=== PATIENT | male | born 1970 | race African-American/Black ===

== ENCOUNTER 2019-01-04 13:22 | Inpatient (IN) | payer OTHER ==
[2019-01-04 14:32] VITALS: BMI 31.2
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
[2019-01-04] MEDS ORDERED: ACETAMINOPHEN 325 MG TABLET (FP) PO PRN (15:46)
[2019-01-04] MEDS ORDERED: P-EPHED 60MG/TRIPROLIDI 2.5MG TABLET PO PRN (15:46)
[2019-01-04] MEDS ORDERED: LOPERAMIDE HCL 2 MG CAPSULE PO PRN (15:46)
[2019-01-04] MEDS ORDERED: IBUPROFEN 400 MG TABLET (FP) PO PRN (15:46)
[2019-01-04] MEDS ORDERED: MAGNESIUM CITRATE 300 ML BOTTLE PO PRN (15:46)
[2019-01-04] MEDS ORDERED: MAG HYDROX/AL HYDROX/SIMETH 30 ML UNIT-DOSE CUP PO PRN (15:46)
[2019-01-04] MEDS ORDERED: guaiFENesin 200 MG/10 ML 10 ML UNIT-DOSE CUPS PO PRN (15:46)
[2019-01-04] MEDS ORDERED: MAGNESIUM HYDROX 2400MG/30ML ORAL SUSPENSION 30 ML CUP PO PRN (15:46)
[2019-01-04] MEDS ORDERED: MENTHOL/PHENOL 1 EACH UD MM PRN (15:46)
[2019-01-04] MEDS: hydrOXYzine PAMOATE 50 MG CAPSULE (FP) PO PRN (21:23)
[2019-01-04] MEDS: MELATONIN 5 MG TABLETS PO PRN (21:23)
[2019-01-04] MEDS: THIAMINE HCL 100 MG TABLET (FP) PO SCH (21:23)
[2019-01-04] MEDS: cloNIDine HCL 0.1 MG TABLET PO PRN (21:24)
[2019-01-04] MEDS: NICOTINE POLACRILEX 4 MG GUM BC PRN (23:07)
[2019-01-05] MEDS: cloNIDine HCL 0.1 MG TABLET PO PRN ×2 (08:50→21:20)
[2019-01-05] MEDS: PRENATAL VITAMINS W/ FOLIC ACID TABLET (FP) PO SCH (10:13)
[2019-01-05] MEDS: hydrOXYzine PAMOATE 50 MG CAPSULE (FP) PO PRN ×2 (10:13→21:20)
[2019-01-05] MEDS: NICOTINE POLACRILEX 4 MG GUM BC PRN ×4 (10:14→21:19)
[2019-01-05] MEDS: THIAMINE HCL 100 MG TABLET (FP) PO SCH (21:19)
[2019-01-06] MEDS: hydrOXYzine PAMOATE 50 MG CAPSULE (FP) PO PRN ×2 (06:15→21:16)
[2019-01-06] MEDS: cloNIDine HCL 0.1 MG TABLET PO PRN ×2 (06:16→21:16)
[2019-01-06] MEDS: PRENATAL VITAMINS W/ FOLIC ACID TABLET (FP) PO SCH (09:57)
[2019-01-06] MEDS: NICOTINE POLACRILEX 4 MG GUM BC PRN ×2 (09:58→21:17)
[2019-01-06 14:55] LABS: HEMATOCRIT 42.9 % (35.4-49); HEMOGLOBIN 14.4 GM/dL (11.7-16.9); MCHC 33.5 g/dl (32.0-35.9); MEAN CELL VOLUME 95.7 fl (80-96); MEAN PLT VOLUME 8.5 fl (7.5-11.1); PLATELET COUNT 274 K/MM3 (134-434); RBC 4.49 M/mm3 (4.00-5.60); RDW 14.7 % (11.9-15.9); WHITE BLOOD COUNT 5.3 K/mm3 (4.0-10.0)
[2019-01-06 15:08] LABS: ALBUMIN 3.6 g/dl (3.4-5.0); BILIRUBIN,TOTAL 0.4 mg/dL (0.2-1); BLOOD UREA NITROGEN 15.4 mg/dL (7-18); CALCIUM 9.5 mg/dL (8.5-10.1); CREATININE 0.8 mg/dL (0.55-1.3); TOT PROT 7.5 g/dl (6.4-8.2)
--- NOTE | 2019-01-06 15:46 | PN ---
"[facility] Progress Note Note: Pt requesting to restart suboxone treatment. Reports last taken was 2 weeks ago. Reports he was on suboxone-MAT with [facility] on [address] [place] [address] Ph: with Dr. Pittman. Vital Signs - 24 hr 01/05/19 01/06/19 01/06/19 22:44 00:30 03:30 Temperature Pulse Rate 90 Respiratory 18 18 Rate Blood Pressure 110/67 01/06/19 06:40 Temperature 97.8 F Pulse Rate 66 Respiratory 18 Rate Blood Pressure 125/81 Laboratory Tests 01/06/19 01/06/19 08:35 08:35 WBC 5.3 RBC 4.49 Hgb 14.4 Hct 42.9 MCV 95.7 MCH 32.0 MCHC 33.5 RDW 14.7 Plt Count 274 MPV 8.5 Sodium 139 Potassium 4.0 Chloride 105 Carbon Dioxide 27 Anion Gap 8 BUN 15.4 Creatinine 0.8 Est GFR (CKD-EPI)AfAm 123.29 Est GFR (CKD-EPI)NonAf 106.38 Random Glucose 113 H Calcium 9.5 Total Bilirubin 0.4 AST 28 ALT 38 Alkaline Phosphatase 149 H Total Protein 7.5 Albumin 3.6 A:suboxone MAT plan:D/w pt will do UDS follow up with counselor to set up aftercare post rehab treatment. pt will be going back to [facility] after discharge from rehab. This report was requested by: Melva To | Reference #: [id number] Others' Prescriptions Patient Name: Grzegorz Feng Date: 1970 Address: [address] [place] [id number] Sex: Male Rx Written Rx Dispensed Drug Quantity Days Supply Prescriber Name 12/09/2018 12/09/2018 buprenorphine-naloxone 8-2 mg sl film 90 30 Devan Gonzalez 10/06/2018 10/06/2018 suboxone 8 mg-2 mg sl film 90 30 MD Moe, Noah 08/10/2018 08/10/2018 buprenorphine-naloxone 8-2 mg sl film 90 30 Lea Canchola 07/13/2018 07/14/2018 suboxone 8 mg-2 mg sl film 90 30 MD Moe, Noah 06/16/2018 06/16/2018 suboxone 8 mg-2 mg sl film 90 30 MD Rosa Mario 05/13/2018 05/13/2018 suboxone 8 mg-2 mg sl film 90 30 Devan Gonzalez 04/24/2018 04/24/2018 suboxone 8 mg-2 mg sl film 60 20 MD Moe, Noah Patient Name: Grzegorz Feng Date: 1970 Address: [address] [place] [address] Sex: Male Rx Written Rx Dispensed Drug Quantity Days Supply Prescriber Name 09/08/2018 09/08/2018 suboxone 8 mg-2 mg sl film 90 30 Kelton Quach * - Drugs marked with an asterisk are compound drugs. If the compound drug is made up of more than one controlled substance, then each controlled substance will be a separate row in the table."
[2019-01-06] MEDS: THIAMINE HCL 100 MG TABLET (FP) PO SCH (21:14)
[2019-01-06] MEDS: MELATONIN 5 MG TABLETS PO PRN (21:16)
[2019-01-07] MEDS: hydrOXYzine PAMOATE 50 MG CAPSULE (FP) PO PRN ×2 (06:19→21:03)
[2019-01-07] MEDS: cloNIDine HCL 0.1 MG TABLET PO PRN ×2 (06:19→21:04)
[2019-01-07] MEDS: NICOTINE POLACRILEX 4 MG GUM BC PRN ×4 (06:21→21:04)
[2019-01-07] MEDS: PRENATAL VITAMINS W/ FOLIC ACID TABLET (FP) PO SCH (10:08)
--- NOTE | 2019-01-07 14:38 | PN ---
[facility] COWS - Scale Resting Pulse: 0= [place] 80 or Below Sweatin= Chills/Flushing Restless Observation: 0= Sits Still Pupil Size: 0= Normal to Room Light (3mm) Bone or Joint Aches: 0= None Runny Nose/ Eye Tearin= None GI Upset > 30mins: 2= Nausea/Diarrhea (diarrhea) Tremor Observation of Outstretched Hands: 0= None Yawning Observation: 1= 1-2x During Session Anxiety or Irritability: 1=Feels Anxious/Irritable Goose Flesh Skin: 3=Piloerection COWS Score: 8 [facility] Progress Note (SOAP) Subjective: Request to restart suboxone. Pt reports he was on suboxone 24 mg/ daily. last Rx of 90 films for 30 days was 12/09/18 as per PNP below. Spoke to Dr. Zain fuentes at [place], [place] at pt's suboxone clinic and he confirmed that patient may return to clinic after rehab. Objective: 01/07/19 14:38 Vital Signs - 24 hr 01/06/19 01/07/19 01/07/19 21:00 00:30 03:30 Temperature Pulse Rate 84 Respiratory 18 18 Rate Blood Pressure 114/74 01/07/19 06:49 Temperature 97.6 F Pulse Rate 76 Respiratory 18 Rate Blood Pressure 110/80 URINE DRUG SCREEN RESULTS Drug Screen Negative No Urine Drug Screen Results THC-Marijuana,BZO-Benzodiazepines Assessment: 01/08/19 08:38 oud suboxone MAT Plan: Restart Suboxone 8 mg/2mg sl daily then re-evaluate sx for increased daily dose.
[2019-01-07] MEDS: THIAMINE HCL 100 MG TABLET (FP) PO SCH (21:02)
[2019-01-07] MEDS: MELATONIN 5 MG TABLETS PO PRN (21:04)
[2019-01-08] MEDS: NICOTINE POLACRILEX 4 MG GUM BC PRN ×4 (06:06→21:08)
[2019-01-08] MEDS: cloNIDine HCL 0.1 MG TABLET PO PRN ×2 (06:06→21:09)
[2019-01-08] MEDS: hydrOXYzine PAMOATE 50 MG CAPSULE (FP) PO PRN ×2 (06:07→21:09)
[2019-01-08] MEDS ORDERED: BUPRENORPHINE/NALOXONE 8 MG/2 MG FILM PACKET SL ONE (10:00)
[2019-01-08] MEDS ORDERED: BUPRENORPHINE/NALOXONE 8 MG/2 MG FILM PACKET SL SCH (10:00)
[2019-01-08] MEDS: PRENATAL VITAMINS W/ FOLIC ACID TABLET (FP) PO SCH (10:01)
[2019-01-08] MEDS: THIAMINE HCL 100 MG TABLET (FP) PO SCH (21:09)
[2019-01-08] MEDS: MELATONIN 5 MG TABLETS PO PRN (21:09)
[2019-01-09] MEDS: BUPRENORPHINE/NALOXONE 8 MG/2 MG FILM PACKET SL SCH (10:11)
[2019-01-09] MEDS: cloNIDine HCL 0.1 MG TABLET PO PRN ×2 (10:11→21:06)
[2019-01-09] MEDS: PRENATAL VITAMINS W/ FOLIC ACID TABLET (FP) PO SCH (10:11)
[2019-01-09] MEDS: hydrOXYzine PAMOATE 50 MG CAPSULE (FP) PO PRN ×2 (10:11→21:06)
[2019-01-09] MEDS: NICOTINE POLACRILEX 4 MG GUM BC PRN ×4 (11:11→23:10)
[2019-01-09] MEDS: THIAMINE HCL 100 MG TABLET (FP) PO SCH (21:04)
[2019-01-10] MEDS: NICOTINE POLACRILEX 4 MG GUM BC PRN ×4 (06:40→21:12)
[2019-01-10] MEDS: PRENATAL VITAMINS W/ FOLIC ACID TABLET (FP) PO SCH (10:11)
[2019-01-10] MEDS: cloNIDine HCL 0.1 MG TABLET PO PRN ×2 (10:12→21:12)
[2019-01-10] MEDS: hydrOXYzine PAMOATE 50 MG CAPSULE (FP) PO PRN ×2 (10:12→21:12)
[2019-01-10] MEDS: BUPRENORPHINE/NALOXONE 8 MG/2 MG FILM PACKET SL SCH (10:13)
[2019-01-10] MEDS: THIAMINE HCL 100 MG TABLET (FP) PO SCH (21:10)
[2019-01-10] MEDS: MELATONIN 5 MG TABLETS PO PRN (21:12)
[2019-01-11] MEDS: hydrOXYzine PAMOATE 50 MG CAPSULE (FP) PO PRN ×2 (09:52→21:05)
[2019-01-11] MEDS: NICOTINE POLACRILEX 4 MG GUM BC PRN ×3 (09:53→21:05)
[2019-01-11] MEDS: PRENATAL VITAMINS W/ FOLIC ACID TABLET (FP) PO SCH (09:53)
[2019-01-11] MEDS: BUPRENORPHINE/NALOXONE 8 MG/2 MG FILM PACKET SL SCH (09:54)
[2019-01-11] MEDS: cloNIDine HCL 0.1 MG TABLET PO PRN ×2 (10:41→21:05)
[2019-01-11] MEDS: THIAMINE HCL 100 MG TABLET (FP) PO SCH (21:03)
[2019-01-11] MEDS: MELATONIN 5 MG TABLETS PO PRN (21:05)
[2019-01-12] MEDS: BUPRENORPHINE/NALOXONE 8 MG/2 MG FILM PACKET SL SCH (09:44)
[2019-01-12] MEDS: hydrOXYzine PAMOATE 50 MG CAPSULE (FP) PO PRN ×2 (09:44→21:07)
[2019-01-12] MEDS: cloNIDine HCL 0.1 MG TABLET PO PRN ×2 (09:44→21:07)
[2019-01-12] MEDS: PRENATAL VITAMINS W/ FOLIC ACID TABLET (FP) PO SCH (09:44)
[2019-01-12] MEDS: THIAMINE HCL 100 MG TABLET (FP) PO SCH (21:05)
[2019-01-12] MEDS: NICOTINE POLACRILEX 4 MG GUM BC PRN ×2 (21:07→23:44)
[2019-01-12] MEDS: MELATONIN 5 MG TABLETS PO PRN (21:07)
[2019-01-12] MEDS: TOLNAFTATE 1% CREAM 15 GM TUBE TP SCH (21:41)
[2019-01-13] MEDS: NICOTINE POLACRILEX 4 MG GUM BC PRN ×4 (06:37→21:06)
[2019-01-13] MEDS: PRENATAL VITAMINS W/ FOLIC ACID TABLET (FP) PO SCH (09:44)
[2019-01-13] MEDS: TOLNAFTATE 1% CREAM 15 GM TUBE TP SCH ×2 (09:44→21:06)
[2019-01-13] MEDS: BUPRENORPHINE/NALOXONE 8 MG/2 MG FILM PACKET SL SCH (09:44)
[2019-01-13] MEDS: hydrOXYzine PAMOATE 50 MG CAPSULE (FP) PO PRN ×2 (09:45→21:05)
[2019-01-13] MEDS: cloNIDine HCL 0.1 MG TABLET PO PRN ×2 (09:45→21:05)
[2019-01-13] MEDS: THIAMINE HCL 100 MG TABLET (FP) PO SCH (21:05)
[2019-01-13] MEDS: MELATONIN 5 MG TABLETS PO PRN (21:06)
[2019-01-14] MEDS: TOLNAFTATE 1% CREAM 15 GM TUBE TP SCH ×2 (09:47→21:09)
[2019-01-14] MEDS: BUPRENORPHINE/NALOXONE 8 MG/2 MG FILM PACKET SL SCH (09:47)
[2019-01-14] MEDS: NICOTINE POLACRILEX 4 MG GUM BC PRN ×4 (09:47→23:35)
[2019-01-14] MEDS: hydrOXYzine PAMOATE 50 MG CAPSULE (FP) PO PRN ×2 (09:47→21:08)
[2019-01-14] MEDS: cloNIDine HCL 0.1 MG TABLET PO PRN ×2 (09:47→21:08)
[2019-01-14] MEDS: PRENATAL VITAMINS W/ FOLIC ACID TABLET (FP) PO SCH (09:47)
[2019-01-14] MEDS: MELATONIN 5 MG TABLETS PO PRN (21:06)
[2019-01-14] MEDS: THIAMINE HCL 100 MG TABLET (FP) PO SCH (21:06)
[2019-01-15] MEDS: NICOTINE POLACRILEX 4 MG GUM BC PRN ×2 (07:57→09:53)
[2019-01-15] MEDS: TOLNAFTATE 1% CREAM 15 GM TUBE TP SCH ×2 (09:51→21:59)
[2019-01-15] MEDS: cloNIDine HCL 0.1 MG TABLET PO PRN ×2 (09:51→21:59)
[2019-01-15] MEDS: PRENATAL VITAMINS W/ FOLIC ACID TABLET (FP) PO SCH (09:51)
[2019-01-15] MEDS: hydrOXYzine PAMOATE 50 MG CAPSULE (FP) PO PRN ×2 (09:51→21:59)
[2019-01-15] MEDS ORDERED: BUPRENORPHINE/NALOXONE 8 MG/2 MG FILM PACKET SL ONE (09:53)
[2019-01-15] MEDS: THIAMINE HCL 100 MG TABLET (FP) PO SCH (21:59)
[2019-01-16] MEDS: cloNIDine HCL 0.1 MG TABLET PO PRN ×2 (06:18→21:12)
[2019-01-16] MEDS: hydrOXYzine PAMOATE 50 MG CAPSULE (FP) PO PRN ×2 (06:18→21:12)
[2019-01-16] MEDS: NICOTINE POLACRILEX 4 MG GUM BC PRN ×3 (06:19→21:13)
[2019-01-16] MEDS: BUPRENORPHINE/NALOXONE 8 MG/2 MG FILM PACKET SL SCH (06:19)
[2019-01-16] MEDS: PRENATAL VITAMINS W/ FOLIC ACID TABLET (FP) PO SCH (10:23)
[2019-01-16] MEDS: TOLNAFTATE 1% CREAM 15 GM TUBE TP SCH ×2 (10:25→21:17)
[2019-01-16] MEDS: THIAMINE HCL 100 MG TABLET (FP) PO SCH (21:12)
[2019-01-16] MEDS: MELATONIN 5 MG TABLETS PO PRN (21:12)
[2019-01-17] MEDS: BUPRENORPHINE/NALOXONE 8 MG/2 MG FILM PACKET SL SCH (06:58)
[2019-01-17] MEDS: NICOTINE POLACRILEX 4 MG GUM BC PRN ×3 (06:58→21:00)
[2019-01-17] MEDS: cloNIDine HCL 0.1 MG TABLET PO PRN (07:01)
[2019-01-17] MEDS: hydrOXYzine PAMOATE 50 MG CAPSULE (FP) PO PRN ×2 (07:01→20:59)
[2019-01-17] MEDS: PRENATAL VITAMINS W/ FOLIC ACID TABLET (FP) PO SCH (09:53)
[2019-01-17] MEDS: TOLNAFTATE 1% CREAM 15 GM TUBE TP SCH ×2 (09:54→21:00)
[2019-01-17] MEDS: THIAMINE HCL 100 MG TABLET (FP) PO SCH (20:59)
[2019-01-17] MEDS: MELATONIN 5 MG TABLETS PO PRN (21:00)
[2019-01-18] MEDS: BUPRENORPHINE/NALOXONE 8 MG/2 MG FILM PACKET SL SCH (06:08)
[2019-01-18 06:35] VITALS: BP 101/74; PULSE 108; TEMP 98.4
[2019-01-18] MEDS: cloNIDine HCL 0.1 MG TABLET PO PRN (07:02)
[2019-01-18] MEDS: hydrOXYzine PAMOATE 50 MG CAPSULE (FP) PO PRN (07:02)
--- NOTE | 2019-01-18 11:15 | PN ---
S Progress Note (SOAP) Subjective: Pt was discharge earlier this morning per his request to follow up with his suboxone provider, Dr. Pittman at [place], [place]. Pt is a 48 y/o A/A male admitted to rehab on 01/04/19 after a 5 day detox at [facility] same day. Pt has a hx of heroin i.v/inh,alcohol,fentanyl and nonRx Methadone use. Pt was re-started on suboxone here in rehab and has agreed to follow up with his provider today as above. Participated in rehab activities and tolerated treatment well. Objective: 01/18/19 11:19 Vital Signs - 24 hr 01/17/19 01/18/19 01/18/19 21:00 00:30 03:30 Temperature Pulse Rate 92 H Respiratory 18 18 18 Rate Blood Pressure 104/57 L 01/18/19 06:34 Temperature 98.4 F Pulse Rate 108 H Respiratory 18 Rate Blood Pressure 101/74 Laboratory Tests 01/06/19 01/06/19 01/06/19 08:35 08:35 08:35 WBC 5.3 RBC 4.49 Hgb 14.4 Hct 42.9 MCV 95.7 MCH 32.0 MCHC 33.5 RDW 14.7 Plt Count 274 MPV 8.5 Sodium 139 Potassium 4.0 Chloride 105 Carbon Dioxide 27 Anion Gap 8 BUN 15.4 Creatinine 0.8 Est GFR (CKD-EPI)AfAm 123.29 Est GFR (CKD-EPI)NonAf 106.38 Random Glucose 113 H Calcium 9.5 Total Bilirubin 0.4 AST 28 ALT 38 Alkaline Phosphatase 149 H Total Protein 7.5 Albumin 3.6 RPR Titer Nonreactive HIV 1&2 Ag/Ab, 4th Gen HIV 1&2 Antibody Screen HIV P24 Antigen 01/13/19 01/13/19 06:30 07:00 WBC RBC Hgb Hct MCV MCH MCHC RDW Plt Count MPV Sodium Potassium Chloride Carbon Dioxide Anion Gap BUN Creatinine Est GFR (CKD-EPI)AfAm Est GFR (CKD-EPI)NonAf Random Glucose Calcium Total Bilirubin AST ALT Alkaline Phosphatase Total Protein Albumin RPR Titer HIV 1&2 Ag/Ab, 4th Gen Non reactive HIV 1&2 Antibody Screen Cancelled HIV P24 Antigen Cancelled Home Medications Medication Instructions Recorded Buprenorphine/Naloxone [Suboxone 3 each SL DAILY 01/04/19 8Mg/2Mg Sl Film -] Assessment: Nad 01/18/19 11:22 [facility] Inpatient Services Medical - Diagnosis (1) Opioid dependence Qualifiers: Substance use status: uncomplicated Qualified Code(s): F11.20 - Opioid dependence, uncomplicated Status: Chronic (2) Alcohol use disorder Status: Chronic (3) Varicose veins of both lower extremities Qualifiers: Varicose vein complication: unspecified Qualified Code(s): I83.93 - Asymptomatic varicose veins of bilateral lower extremities Status: Chronic (4) Encounter for monitoring Suboxone maintenance therapy Status: Chronic Initialized on 01/18/19 11:16 - END OF NOTE Plan: Pt was discharged today. Follow up with CD aftercare as recommended follow up with pcp Dr. Pittman for continuing care/suboxone maintenance treatment.
== END 2019-01-18 07:10 | disposition home or self-care (01) | DRG 772 ==
LOC: YASAS 13:22 → Y5N 16:43
PROVIDERS: ADMIT Neuromusculoskeletal Medicine & OMM; ATTEND Neuromusculoskeletal Medicine & OMM
PROC: HZ42ZZZ Group Counseling for Substance Abuse Treatment, Cognitive-Behavioral (ICD-10-PCS; principal; 2019-01-04)
DX: F11.20 Opioid dependence, uncomplicated (principal); F10.10 Alcohol abuse, uncomplicated; F17.210 Nicotine dependence, cigarettes, uncomplicated; I83.93 Asymptomatic varicose veins of bilateral lower extremities
CPT/HCPCS: 36415; 80053; 85027; 86593; 87389; J0735

== ENCOUNTER 2023-05-26 16:35 | Inpatient (IN) | payer OTHER ==
[2023-05-26 17:26] VITALS: BMI 36.5
[2023-05-26] MEDS ORDERED: BISMUTH SUBSALICYLATE 524 MG/30 ML PO PRN (21:45)
[2023-05-26] MEDS ORDERED: BENZONATATE 200 MG CAPSULE PO PRN (21:45)
[2023-05-26] MEDS ORDERED: POLYETHYLENE GLYCOL (HEALTHYLAX) 3350 17 GM PACKET PO PRN (21:45)
[2023-05-26] MEDS ORDERED: IBUPROFEN 600 MG TABLET (FP) PO PRN (21:45)
[2023-05-26] MEDS ORDERED: NALOXONE HCL (KLOXXADO) 8 MG SPRAY NS PRN (21:45)
[2023-05-26] MEDS ORDERED: IBUPROFEN 400 MG TABLET (FP) PO PRN (21:45)
[2023-05-26] MEDS ORDERED: P-EPHED 60MG/TRIPROLIDI 2.5MG TABLET PO PRN (21:45)
[2023-05-26] MEDS ORDERED: MAGNESIUM HYDROX 2400MG/30ML ORAL SUSPENSION 30 ML CUP PO PRN (21:45)
[2023-05-26] MEDS ORDERED: guaiFENesin 600 MG TABLET.ER (FP) PO PRN (21:45)
[2023-05-26] MEDS ORDERED: ACETAMINOPHEN 325 MG TABLET (FP) PO PRN (21:45)
[2023-05-26] MEDS ORDERED: ONDANSETRON *ODT* 4 MG TABLET SL PRN (21:45)
[2023-05-26] MEDS ORDERED: LOPERAMIDE HCL 2 MG CAPSULE PO PRN (21:45)
[2023-05-26] MEDS ORDERED: MAG HYDROX/AL HYDROX/SIMETH 30 ML UNIT-DOSE CUP PO PRN (21:45)
[2023-05-26] MEDS ORDERED: DICYCLOMINE HCL 10 MG CAPSULE PO PRN (21:45)
[2023-05-26] MEDS ORDERED: BENZOCAINE/MENTHOL (CHLORASEPTIC ) LOZENGE MM PRN (21:45)
[2023-05-26] MEDS ORDERED: NALOXONE HCL 0.4 MG/ML VIAL IM PRN (21:45)
[2023-05-26] MEDS: MELATONIN 5 MG TABLETS PO SCH (23:04)
[2023-05-26] MEDS: METHOCARBAMOL 500 MG TABLET PO PRN (23:05)
[2023-05-26] MEDS: THIAMINE HCL 100 MG TABLET (FP) PO SCH (23:07)
[2023-05-27] MEDS: PRENATAL VITAMINS W/ FOLIC ACID TABLET (FP) PO SCH (10:35)
[2023-05-27] MEDS ORDERED: methaDONE HCL 10 MG TABLET PO SCH (11:15)
[2023-05-27] MEDS: diazePAM 5 MG TABLET PO SCH ×3 (11:33→22:26)
[2023-05-27] MEDS: NICOTINE POLACRILEX 2 MG GUM BUC PRN (11:38)
[2023-05-27] MEDS: NICOTINE 21 MG/24 HOURS TOPICAL PATCH TD SCH (12:10)
[2023-05-27 13:15] LABS: CHLORIDE 105 mmol/L (98-107); POTASSIUM 3.8 mmol/L (3.5-5.1); SODIUM 138 mmol/L (136-145)
[2023-05-27 13:17] LABS: CALCIUM 8.6 mg/dL (8.5-10.1)
[2023-05-27 13:18] LABS: ALBUMIN 2.7 g/dl (3.4-5.0); ANION GAP 3 mmol/L (4-13); BLOOD UREA NITROGEN 10.2 mg/dL (7-18); CO2 30 mmol/L (21-32); GLUCOSE,RANDOM 152 mg/dL (74-106); HEMATOCRIT 40.6 % (35.4-49); HEMOGLOBIN 13.4 GM/dL (11.7-16.9); MCH 32.2 pg (25.7-33.7); MEAN CELL VOLUME 97.5 fl (80-96); PLATELET COUNT 161 10^3/uL (134-434); RBC 4.17 M/mm3 (4.00-5.60); RDW 14.5 % (11.9-15.9); WHITE BLOOD COUNT 3.2 K/mm3 (4.0-10.0)
[2023-05-27 13:20] LABS: SGPT/ALT 39 U/L (13-61)
[2023-05-27 13:21] LABS: CREATININE 0.8 mg/dL (0.55-1.3); SGOT/AST 54 U/L (15-37)
[2023-05-27 13:22] LABS: BILIRUBIN,TOTAL 0.4 mg/dL (0.2-1); TOT PROT 5.9 g/dl (6.4-8.2)
[2023-05-27 13:23] LABS: ALK PHOS 74 U/L (45-117)
[2023-05-27] MEDS: diazePAM 5 MG TABLET PO PRN ×2 (15:23→21:48)
[2023-05-27] MEDS: THIAMINE HCL 100 MG TABLET (FP) PO SCH (21:47)
[2023-05-27] MEDS: MELATONIN 5 MG TABLETS PO SCH (21:47)
[2023-05-27] MEDS: METHOCARBAMOL 500 MG TABLET PO PRN (21:47)
[2023-05-28] MEDS: diazePAM 5 MG TABLET PO SCH ×4 (05:44→22:21)
[2023-05-28] MEDS: PRENATAL VITAMINS W/ FOLIC ACID TABLET (FP) PO SCH (10:16)
[2023-05-28] MEDS: NICOTINE 21 MG/24 HOURS TOPICAL PATCH TD SCH (10:17)
[2023-05-28] MEDS: diazePAM 5 MG TABLET PO PRN (15:43)
[2023-05-28] MEDS: NICOTINE POLACRILEX 2 MG GUM BUC PRN (18:34)
[2023-05-28] MEDS: MELATONIN 5 MG TABLETS PO SCH (22:21)
[2023-05-28] MEDS: THIAMINE HCL 100 MG TABLET (FP) PO SCH (22:21)
[2023-05-29] MEDS: diazePAM 5 MG TABLET PO SCH ×3 (05:49→22:26)
[2023-05-29] MEDS: NICOTINE POLACRILEX 2 MG GUM BUC PRN ×3 (05:53→22:27)
[2023-05-29] MEDS: diazePAM 5 MG TABLET PO PRN (10:22)
[2023-05-29] MEDS: PRENATAL VITAMINS W/ FOLIC ACID TABLET (FP) PO SCH (10:22)
[2023-05-29] MEDS: NICOTINE 21 MG/24 HOURS TOPICAL PATCH TD SCH (10:22)
[2023-05-29] MEDS: MELATONIN 5 MG TABLETS PO SCH (22:25)
[2023-05-29] MEDS: THIAMINE HCL 100 MG TABLET (FP) PO SCH (22:26)
[2023-05-30] MEDS: diazePAM 5 MG TABLET PO SCH ×2 (06:04→17:07)
[2023-05-30] MEDS: NICOTINE POLACRILEX 2 MG GUM BUC PRN (06:08)
[2023-05-30] MEDS: PRENATAL VITAMINS W/ FOLIC ACID TABLET (FP) PO SCH (10:10)
[2023-05-30] MEDS: NICOTINE 21 MG/24 HOURS TOPICAL PATCH TD SCH (10:11)
[2023-05-30] MEDS: diazePAM 5 MG TABLET PO PRN (10:11)
[2023-05-30] MEDS: MELATONIN 5 MG TABLETS PO SCH (22:13)
[2023-05-30] MEDS: THIAMINE HCL 100 MG TABLET (FP) PO SCH (22:13)
[2023-05-31] MEDS ORDERED: diazePAM 5 MG TABLET PO ONE (06:00)
[2023-05-31 09:46] VITALS: BP 117/74; PULSE 77; RESP 16; TEMP 97.7
[2023-05-31] MEDS: NICOTINE 21 MG/24 HOURS TOPICAL PATCH TD SCH (10:34)
[2023-05-31] MEDS: PRENATAL VITAMINS W/ FOLIC ACID TABLET (FP) PO SCH (10:34)
== END 2023-05-31 10:32 | disposition home or self-care (01) | DRG 773 ==
LOC: YASAS 16:35 → Y3N 22:23
PROVIDERS: ADMIT Allergy & Immunology; ATTEND Surgery
PROC: HZ2ZZZZ Detoxification Services for Substance Abuse Treatment (ICD-10-PCS; principal; 2023-05-26)
DX: F10.230 Alcohol dependence with withdrawal, uncomplicated (principal); F11.20 Opioid dependence, uncomplicated; F13.20 Sedative, hypnotic or anxiolytic dependence, uncomplicated; F14.20 Cocaine dependence, uncomplicated; F12.20 Cannabis dependence, uncomplicated; F17.210 Nicotine dependence, cigarettes, uncomplicated; R73.9 Hyperglycemia, unspecified; Z88.8 Allergy status to other drugs, medicaments and biological substances
CPT/HCPCS: 36415; 80053; 80307; 82962; 83036; 85027; 86780; 87635; 93005; 93010